=== PATIENT | male | born 1945 | race Caucasian/White ===

== ENCOUNTER → 2016-04-16 | Outpatient (CLI) | payer OTHER ==
[~2016-04-16] MED LIST: ACET-1175 PO; AMLO5TAB4 PO; ASPI81TA21 PO; BISA10SU38 PR; CLC100 PO; LORA-741 PO; LPR25 PO; MOML PO; POLY335040 PO; SENN-65 PO; ZCRT/40 PO
[2016-04-16 16:38] LABS: HEMATOCRIT 42.7 % (42-52); MEAN CELL VOLUME 103.6 fL (80-100); MEAN CORPUSCULAR HEMOGLOBIN 35.2 pg (25-34); MEAN PLATELET VOLUME 10.7 fL (7.4-10.4); PLATELET COUNT 225 K/uL (130-400); RED BLOOD COUNT 4.12 M/uL (4.7-6.1); WHITE BLOOD COUNT 6.66 K/uL (4.8-10.8)
[2016-04-16 17:56] LABS: AST/SGOT 15 U/L (15-37); BLOOD UREA NITROGEN 12 mg/dl (7-18); BUN/CREATININE RATIO 12.9 (10-20); CALCIUM 8.9 mg/dl (8.5-10.1); CARBON DIOXIDE 26 mmol/L (21-32); CHLORIDE 107 mmol/L (98-107); CREATININE 0.95 mg/dl (0.60-1.40); GLUCOSE 109 mg/dl (70-99); POTASSIUM 4.9 mmol/L (3.5-5.1); SODIUM 141 mmol/L (136-145)
[2016-04-16 18:04] LABS: ALKALINE PHOSPHATASE 84 U/L (45-117); ALT/SGPT 25 U/L (12-78); CHOLESTEROL 95 mg/dl (0-200); CHOLESTEROL/HDL RATIO 2.4; HDL CHOLESTEROL 39 mg/dl; LDL CHOLESTEROL CALCULATED 35 mg/dl; PROSTATE SPECIFIC ANTIGEN 0.623 ng/ml (0.000-4.000); TRIGLYCERIDES 105 mg/dl (0-150); VERY LOW DENSITY LIPOPROT CALC 21 mg/dl
[2016-04-17 06:40] LABS: ESTIMATED AVERAGE GLUCOSE 117 mg/dl; HA1C FLAG Normal (Normal)
== END | disposition home or self-care (01) ==
LOC: C.LABBFT 12:38
PROVIDERS: ATTEND Internal Medicine
DX: I25.10 Atherosclerotic heart disease of native coronary artery without angina pectoris (principal); R73.9 Hyperglycemia, unspecified; Z12.5 Encounter for screening for malignant neoplasm of prostate

== ENCOUNTER → 2016-10-24 | Outpatient (CLI) | payer OTHER ==
[2016-10-24 16:24] LABS: HEMATOCRIT 44.5 % (42-52); MEAN CELL VOLUME 105.5 fL (80-100); MEAN CORPUSCULAR HEMOGLOBIN 34.1 pg (25-34); MEAN CORPUSCULAR HGB CONC 32.4 g/dl (32-36); MEAN PLATELET VOLUME 10.4 fL (7.4-10.4); PLATELET COUNT 221 K/uL (130-400); RED BLOOD COUNT 4.22 M/uL (4.7-6.1); WHITE BLOOD COUNT 7.87 K/uL (4.8-10.8)
[2016-10-24 16:38] LABS: ALT/SGPT 23 U/L (12-78); AST/SGOT 14 U/L (15-37); BLOOD UREA NITROGEN 10 mg/dl (7-18); CARBON DIOXIDE 27 mmol/L (21-32); CHLORIDE 108 mmol/L (98-107); CREATININE 0.86 mg/dl (0.60-1.40); GLUCOSE 85 mg/dl (70-99); POTASSIUM 4.8 mmol/L (3.5-5.1); SODIUM 143 mmol/L (136-145)
[2016-10-24 16:42] LABS: ALKALINE PHOSPHATASE 73 U/L (45-117); CHOLESTEROL 95 mg/dl (0-200); CHOLESTEROL/HDL RATIO 2.3; HDL CHOLESTEROL 42 mg/dl; LDL CHOLESTEROL CALCULATED 22 mg/dl; TRIGLYCERIDES 154 mg/dl (0-150); VERY LOW DENSITY LIPOPROT CALC 31 mg/dl
[2016-10-25 07:23] LABS: ESTIMATED AVERAGE GLUCOSE 120 mg/dl; HA1C FLAG Normal (Normal)
== END | disposition home or self-care (01) ==
LOC: C.LABBFT 12:31
PROVIDERS: ATTEND Internal Medicine
DX: I63.9 Cerebral infarction, unspecified (principal); R73.01 Impaired fasting glucose; I10 Essential (primary) hypertension

== ENCOUNTER → 2017-06-10 | Outpatient (CLI) | payer OTHER ==
[2017-06-10 17:36] LABS: BASO % 0.4 %; BASO ABS # 0.03 K/uL (0-0.2); EOS % 1.2 %; HEMATOCRIT 45.9 % (42-52); HEMOGLOBIN 15.3 g/dL (14.0-18.0); IG# 0.01 K/uL (0.00-0.02); LYMPH % 34.3 %; LYMPH ABS # 2.88 K/uL (1.2-3.4); MEAN CORPUSCULAR HEMOGLOBIN 35.7 pg (25-34); MEAN CORPUSCULAR HGB CONC 33.3 g/dl (32-36); MEAN PLATELET VOLUME 10.5 fL (7.4-10.4); MONO % 8.2 %; MONO ABS # 0.69 K/uL (0.11-0.59); NEUT % 55.8 %; NEUT ABS # 4.69 K/uL (1.4-6.5); PLATELET COUNT 225 K/uL (130-400); RED CELL DISTRIBUTION WIDTH CV 13.4 % (11.5-14.5); RED CELL DISTRIBUTION WIDTH SD 52.7 fL (36.4-46.3)
[2017-06-10 17:54] LABS: ALT/SGPT 25 U/L (12-78); AST/SGOT 18 U/L (15-37); BLOOD UREA NITROGEN 14 mg/dl (7-18); CALCIUM 9.1 mg/dl (8.5-10.1); CARBON DIOXIDE 24 mmol/L (21-32); CREATININE 0.96 mg/dl (0.60-1.40); GLUCOSE 87 mg/dl (70-99); POTASSIUM 4.4 mmol/L (3.5-5.1); SODIUM 139 mmol/L (136-145)
[2017-06-10 17:59] LABS: ALKALINE PHOSPHATASE 85 U/L (45-117); CHOLESTEROL 97 mg/dl (0-200); LDL CHOLESTEROL CALCULATED 31 mg/dl; TOTAL PROTEIN 8.3 gm/dl (6.4-8.2)
[2017-06-11 06:45] LABS: HEMOGLOBIN A1C 5.7 % (4.5-5.6)
== END | disposition home or self-care (01) ==
LOC: C.LABBFT 11:18
PROVIDERS: ATTEND Internal Medicine
DX: R73.01 Impaired fasting glucose (principal); I63.9 Cerebral infarction, unspecified; Z12.5 Encounter for screening for malignant neoplasm of prostate

== ENCOUNTER 2021-12-29 14:11 | Inpatient (IN) ==
[2021-12-29 15:54] LABS: Basophils # (auto) 0.01 K/uL (0-0.2); Basophils % (auto) 0.3 %; Hematocrit (blood only) 41.3 % (40.1-51.0); Hemoglobin 14.3 g/dl (14.0-18.0); Immature Granulocytes # (auto) 0.01 K/uL (0.00-0.02); Immature Granulocytes % (auto) 0.3 %; Lymphocytes # (auto) 0.81 K/uL (1.2-3.4); Mean Corpuscular Hemoglobin 35.1 pg (25.0-34.0); Mean Corpuscular Hgb Conc 34.6 g/dL (32.0-36.0); Mean Corpuscular Volume 101.5 fL (80.0-100.0); Monocytes # (auto) 0.45 K/uL (0.24-0.82); Monocytes % (auto) 12.2 %; Neutrophils # (auto) 2.41 K/uL (1.4-6.5); Neutrophils % (auto) 65.2 %; Platelet Count 154 K/uL (130-400); RDW Coefficient of Variation 12.5 % (11.5-14.5); RDW Standard Deviation 47.5 fL (36.4-46.3); Red Blood Count 4.07 M/uL (4.63-6.08); White Blood Count 3.69 K/ul (4.8-10.8)
[2021-12-29 16:08] LABS: Partial Thromboplastin Ratio 1.4; Partial Thromboplastin Time 38.3 Seconds (21.0-31.0)
[2021-12-29 16:19] LABS: Alanine Aminotransferase 18 U/L (7-52); Albumin Globulin Ratio 1.3 (0.9-2); Albumin Level 3.9 gm/dl (3.4-5.0); Alkaline Phosphatase 88 U/L (34-104); Anion Gap 9 (3-11); Aspartate Aminotransferase 26 U/L (13-39); BUN Creatinine Ratio 13.5 (10-20); Bilirubin,Total 0.6 mg/dl (0.2-1.0); Blood Urea Nitrogen 12 mg/dl (6-23); Calcium 8.5 mg/dl (8.5-10.1); Carbon Dioxide 25 mmol/L (21-32); Chloride 100 mmol/L (98-107); Est GFR (African American) 96.9 ml/min; Est GFR (Non-African American) 83.6 ml/min; Globulin 3.1 gm/dl (2.5-4.0); Glucose 119 mg/dl (70-99(Fasting)); Potassium 4.2 mmol/L (3.5-5.1); Sodium 134 mmol/L (136-145)
[2021-12-29 16:32] LABS: Influenza A virus by PCR Negative (Neg); Influenza B virus by PCR Negative (Neg); RSV by PCR Negative (Neg)
[2021-12-29 17:00] LABS: SARS CoV2 RNA(COVID-19) InHosp POSITIVE (Negative)
[2021-12-29] MEDS ORDERED: methylPREDNISolone 125 MG/2 ML VIAL IV STA (20:02)
[2021-12-29] MEDS ORDERED: ALBUT/IPRATROP 3MG/0.5MG NEB 3 ML VIAL NEB STA (20:02)
--- NOTE | 2021-12-29 20:13 | Emergency Department Note ---
Impression & Plan COVID-19, Acute confusion ED Provider Note INFORMANT: Patient and family ED PROVIDER(S): Meng Burgos MD CHIEF COMPLAINT: Illness PLAN: Disposition: Admitted Condition: Good Outpatient prescription management: none Referral: None MEDICAL DECISION MAKING: Patient presented because of illness. He had confusion. He tested positive for COVID at home. Patient was confirmed positive here. He was doing well with supplemental nasal cannula oxygen. Chest x-ray was performed showed chronic changes without evidence of pneumonia. Minimal pulmonary edema. He was given nebulizer treatment as well as Solu-Medrol. Vital signs remained stable. Given the confusion head CT was performed and showed chronic changes. His ECG showed normal sinus rhythm. Chemistry panel was unremarkable. CBC showed a mild leukopenia. Further management in the hospital was deemed appropriate given his weakness, confusion, and COVID diagnosis. Consultation was made with Dr. Forrest Mendez of the [facility] service. Patient was evaluated in the ER for further management. Triage Nursing notes reviewed and agree them. Vital Signs: reviewed and remarkable for no significant abnormalities Differential diagnosis: COVID-19, reactive airway disease, pneumonia, pneumothorax, COPD, CHF, infections, cardiac ischemia, pulmonary embolism, CVA, as well as other pathologies. Diagnostics interpreted by me: ECG: Twelve-lead ECG reveals a normal sinus rhythm at 85 bpm. Right bundle branch block present. No ST elevation or depression. No PACs or PVCs. Cardiac Monitoring: Cardiac monitoring ordered by me: The patient was placed on continuous cardiac monitoring and observed. It revealed a normal sinus rhythm at 78 beats per minute without ectopy or evidence of dysrhythmia. Imaging studies: Chest x-ray as noted below HPI: The patient is a 76year old male who presents to the Emergency Room with complaints of illness. This started a week ago and the patient was found to have COVID-19. Family was concerned as he has become progressively more weak and short of breath. He has had periods of confusion. He is not doing well at home. EMS was summoned. Patient's BSG was adequate. He was noted to have a pulse oximetry of 91%. He was given nasal cannula oxygen. The patient also notes the following associated symptoms, diarrhea. The patient has taken no medication for relieving factors. Current pain is rated as 0/10. Pt denies LOC, headache, fevers, chills, diaphoresis, visual changes, neck pain, chest pain,nausea, vomiting, abdominal pain, back pain, melena, hematochezia, urinary symptoms, numbness, weakness, lymphadenopathy, rash, or other complaints. ROS: See above HPI for pertinent positives & negatives. A total of 10 systems reviewed and were otherwise negative. PAST MEDICAL HISTORY:See Below , hypertension, CAD PAST SURGICAL HISTORY:See Below, FAMILY HISTORY:See Below SOCIAL HISTORY:See Below, smoker HOME MEDICATIONS:See Below ALLERGIES:See Below VITALS:See Below PHYSICAL EXAMINATION: GENERAL: Awake, mildly ill-appearing, in no distress HENT: Normocephalic, atraumatic. Oropharynx unremarkable. EYES: Normal conjunctiva. Sclera non-icteric. NECK: Inspection normal. Non-tender. Supple. No nuchal rigidity. FROM. No masses. RESPIRATORY: Coarse breath sounds bilaterally. No wheezes. No rales. Mildly in creased respiratory effort. CARDIAC: Normal rate. Normal rhythm. No murmurs. No rubs. Extremities warm and well perfused. Pulses equal. No JVD. GI: Soft, non-distended. No tenderness to palpation. No rebound or guarding. No masses. RECTAL: Deferred. MUSCULOSKELETAL: Atraumatic. Chest examination reveals no tenderness. The back is symmetrical on inspection without obvious abnormality. There is no CVA tenderness to palpation. No joint edema. LOWER EXTREMITIES: Calves are equal size bilaterally and non-tender. No edema. No discoloration. NEURO: Mildly confused but otherwise normal sensorium. No focal sensory or motor deficits noted. SKIN: No rash or jaundice noted. Meng Burgos MD Past Med/Surg History Medical History Cerebral infarction Hypertension Surgical History History of cholecystectomy History of hernia repair History of tonsillectomy Family History Father Myocardial infarction Diabetes Sister Diabetes Brother Diabetes Family/Other Hypertension Mother Pacemaker Denies family history of Ovarian cancer Prostate cancer Breast cancer Colorectal cancer Social History (Updated 08/05/21 @ 11:24 by RANDI Egan) Smoking Status: Unknown if ever smoked Tobacco Type: Cigarettes Age Started Using Tobacco: 16; packs per day: 1; Second Hand Exposure: Yes ( smokes too ); Hx Alcohol Use: No Hx Substance Use: No Preferred Language: Khmer Visual Impairment: No Limitations Hearing Ability: Normal marital status: Current Living Situation: Spouse current occupational status: retired current occupation: used to work at [email or web address] Feels Safe at Home: Yes Childhood Exposure to Second-Hand Smoke: Yes Dental Care, Regularly: No Physical Activity Frequency: Does not Exercise Seatbelt Use: always Sunscreen Use: No Allergies Allergies Allergy/AdvReac Type Severity Reaction Status Date / Time No Known Allergies Allergy Verified 12/05/21 11:32 Home Meds Home Medications Medication Instructions Recorded Confirmed mecobalamin (vitamin B12) 1,000 2,500 mcg PO DAILY 12/05/21 12/05/21 mcg chewable tablet Previous Rx's Medication Instructions Recorded aspirin 81 mg tablet,delayed 81 mg PO DAILY #30 tabs 01/11/19 release metoprolol tartrate 25 mg tablet 25 mg PO BID #180 tabs 02/07/21 atorvastatin 20 mg tablet 20 mg PO DAILY #90 tabs 03/18/21 oxybutynin chloride 5 mg tablet 5 mg PO BID #180 tabs 06/24/21 amlodipine 5 mg tablet 5 mg PO DAILY #90 tabs 08/23/21 Results & Data (ED) Vital Signs Vital Signs - 24 hr 12/29/21 14:48 12/29/21 19:34 12/29/21 21:41 Temperature 36.6 C Temperature Source Temporal Artery Scan Pulse Rate 84 Pulse Rate [Right Finger] 87 Respiratory Rate 20 22 Pulse Oximetry 95 98 98 Oxygen Delivery Method Nasal Cannula Room Air Nasal Cannula Oxygen Flow Rate 2 4 Sepsis New/Unexplained Change in Mental Status Yes Sepsis Action Taken by Nursing No Action Required Laboratory Data Result diagrams: 12/29/21 15:35 12/29/21 15:35 Lab Results 12/29/21 12/29/21 12/29/21 Range/Units 15:35 15:35 15:35 WBC 3.69 L (4.8-10.8) K/ul RBC 4.07 L (4.63-6.08) M/uL Hgb 14.3 (14.0-18.0) g/dl Hct 41.3 (40.1-51.0) % MCV 101.5 H (80.0-100.0) fL MCH 35.1 H (25.0-34.0) pg MCHC 34.6 (32.0-36.0) g/dL RDW Std Deviation 47.5 H (36.4-46.3) fL RDW Coeff of [place] 12.5 (11.5-14.5) % Plt Count 154 (130-400) K/uL MPV 10.0 (9.4-12.4) fL Immature Gran % (Auto) 0.3 % Neut % (Auto) 65.2 % Lymph % (Auto) 22.0 % [place] % (Auto) 12.2 % Eos % (Auto) 0.0 % Baso % (Auto) 0.3 % Neut # (Auto) 2.41 (1.4-6.5) K/uL Lymph # (Auto) 0.81 L (1.2-3.4) K/uL [place] # (Auto) 0.45 (0.24-0.82) K/uL Eos # (Auto) 0.00 (0-0.50) K/uL Baso # (Auto) 0.01 (0-0.2) K/uL Immature Gran # (Auto) 0.01 (0.00-0.02) K/uL APTT 38.3 H (21.0-31.0) Seconds PTT Ratio 1.4 Sodium 134 L (136-145) mmol/L Potassium 4.2 (3.5-5.1) mmol/L Chloride 100 (98-107) mmol/L Carbon Dioxide 25 (21-32) mmol/L Anion Gap 9 (3-11) BUN 12 (6-23) mg/dl Creatinine 0.89 (0.6-1.4) mg/dl Est Cr Clr Drug Dosing Not Reportable Est GFR ( Amer) 96.9 ml/min Est GFR (Non-Af Amer) 83.6 ml/min BUN/Creatinine Ratio 13.5 (10-20) Glucose 119 H (70-99(Fasting)) mg/dl Calcium 8.5 (8.5-10.1) mg/dl Total Bilirubin 0.6 (0.2-1.0) mg/dl AST 26 (13-39) U/L ALT 18 (7-52) U/L Alkaline Phosphatase 88 (34-104) U/L Total Protein 7.0 (6.0-8.3) gm/dl Albumin 3.9 (3.4-5.0) gm/dl Globulin 3.1 (2.5-4.0) gm/dl Albumin/Globulin Ratio 1.3 (0.9-2) Urine Color Urine Appearance (Clear) Urine pH (4.5-7.5) Ur Specific [place] (1.000-1.030) Urine Protein (Negative) Urine Glucose (UA) (Negative) Urine Ketones (Negative) Urine Blood (Negative) Urine Nitrite (Negative) Urine Bilirubin (Negative) Urine Urobilinogen (Negative) Ur Leukocyte Esterase (Negative) Urine WBC (Auto) (0-5) /hpf Urine RBC (Auto) (0-4) /hpf U Hyaline Cast (Auto) (0-5) /lpf U Epithel Cells (Auto) (0-5) /lpf Urine Bacteria (Auto) (Negative) SARS-CoV-2 (PCR) (Negative) Influenza Type A (PCR) (Neg) Influenza Type B (PCR) (Neg) RSV (RT-PCR) (Neg) 12/29/21 12/29/21 Range/Units 15:40 22:32 WBC (4.8-10.8) K/ul RBC (4.63-6.08) M/uL Hgb (14.0-18.0) g/dl Hct (40.1-51.0) % MCV (80.0-100.0) fL MCH (25.0-34.0) pg MCHC (32.0-36.0) g/dL RDW Std Deviation (36.4-46.3) fL RDW Coeff of [place] (11.5-14.5) % Plt Count (130-400) K/uL MPV (9.4-12.4) fL Immature Gran % (Auto) % Neut % (Auto) % Lymph % (Auto) % [place] % (Auto) % Eos % (Auto) % Baso % (Auto) % Neut # (Auto) (1.4-6.5) K/uL Lymph # (Auto) (1.2-3.4) K/uL [place] # (Auto) (0.24-0.82) K/uL Eos # (Auto) (0-0.50) K/uL Baso # (Auto) (0-0.2) K/uL Immature Gran # (Auto) (0.00-0.02) K/uL APTT (21.0-31.0) Seconds PTT Ratio Sodium (136-145) mmol/L Potassium (3.5-5.1) mmol/L Chloride (98-107) mmol/L Carbon Dioxide (21-32) mmol/L Anion Gap (3-11) BUN (6-23) mg/dl Creatinine (0.6-1.4) mg/dl Est Cr Clr Drug Dosing Est GFR ( Amer) ml/min Est GFR (Non-Af Amer) ml/min BUN/Creatinine Ratio (10-20) Glucose (70-99(Fasting)) mg/dl Calcium (8.5-10.1) mg/dl Total Bilirubin (0.2-1.0) mg/dl AST (13-39) U/L ALT (7-52) U/L Alkaline Phosphatase (34-104) U/L Total Protein (6.0-8.3) gm/dl Albumin (3.4-5.0) gm/dl Globulin (2.5-4.0) gm/dl Albumin/Globulin Ratio (0.9-2) Urine Color Dark Yellow Urine Appearance Clear (Clear) Urine pH 5.5 (4.5-7.5) Ur Specific [place] 1.020 (1.000-1.030) Urine Protein Trace H (Negative) Urine Glucose (UA) Negative (Negative) Urine Ketones 1+ H (Negative) Urine Blood Negative (Negative) Urine Nitrite Negative (Negative) Urine Bilirubin 1+ H (Negative) Urine Urobilinogen Negative (Negative) Ur Leukocyte Esterase Trace H (Negative) Urine WBC (Auto) 1-5 (0-5) /hpf Urine RBC (Auto) 5-10 H (0-4) /hpf U Hyaline Cast (Auto) 5-10 H (0-5) /lpf U Epithel Cells (Auto) >30 H (0-5) /lpf Urine Bacteria (Auto) Negative (Negative) SARS-CoV-2 (PCR) POSITIVE A* (Negative) Influenza Type A (PCR) Negative (Neg) Influenza Type B (PCR) Negative (Neg) RSV (RT-PCR) Negative (Neg) Administered Medications Discontinued Medications Albuterol (Albut/Ipratrop 3mg/0.5mg Neb 3 Ml Vial) 3 ml NEB NOW STA; Protocol Stop: 12/29/21 20:03 Last Admin: 12/29/21 20:09 Dose: 3 ml Documented By: PINO Methylprednisolone (Methylprednisolone 125 Mg/2 Ml Vial) 125 mg IV NOW STA Stop: 12/29/21 20:03 Last Admin: 12/29/21 20:09 Dose: 125 mg Documented By: PINO Imaging Data Radiologist's Impression: Chest X-Ray 12/29/21 18:47 XR chest 1V portable CLINICAL HISTORY: +covid TECHNIQUE: Single frontal radiograph of the chest was obtained. Comparison: Comparison is made to chest radiograph 09/09/2011 FINDINGS: No lines and tubes are seen. Cardiomegaly is noted. Prominence and cephalization of the vasculature is seen. No evidence of pleural effusion or pneumothorax. IMPRESSION: Mild pulmonary edema. No radiographic evidence of pneumonia. ACT 112: Negative or not required by law. Electronically signed by: Cody Knapp M.D. 12/29/2021 8:51 PM Discharge Plan Visit Data Chief Complaint: Illness Stated Complaint: + COVID ED Provider: Meng Burgos Discharge Problem: COVID-19, Acute confusion Patient Disposition: Admitted As Inpatient Discharge Instructions Interventions: ED Discharge Assessment Last Done: 12/30/21 00:16
--- NOTE | 2021-12-29 20:54 | XRay Report ---
XR chest 1V portable CLINICAL HISTORY: +covid TECHNIQUE: Single frontal radiograph of the chest was obtained. Comparison: Comparison is made to chest radiograph 09/09/2011 FINDINGS: No lines and tubes are seen. Cardiomegaly is noted. Prominence and cephalization of the vasculature i s seen. No evidence of pleural effusion or pneumothorax. IMPRESSION: Mild pulmonary edema. No radiographic evidence of pneumonia. ACT 112: Negative or not required by law. Electronically signed by: Cody Knapp M.D. 12/29/2021 8:51 PM
[2021-12-29 22:49] LABS: Appearance Urine Clear (Clear); Bacteria Urine Automated Negative (Negative); Blood Urine Negative (Negative); Color Urine Dark Yellow; Epithelial Cell Urine Auto >30 /lpf (0-5); Glucose Urine UA Negative (Negative); Ketones Urine 1+ (Negative); Leukocyte Esterase Urine Trace (Negative); Nitrite Urine Negative (Negative); Protein Urine Trace (Negative); Urobilinogen Urine Negative (Negative); pH Urine 5.5 (4.5-7.5)
[2021-12-29 22:56] LABS: Bilirubin Urine 1+ (Negative)
--- NOTE | 2021-12-29 23:01 | History & Physical Report ---
Date of Service December 29, 2021 Assessment & Plan (1) Acute respiratory failure with hypoxia: Plan: Acute respiratory failure with hypoxia/COVID-19 infection/COPD exacerbation- Received methylprednisolone 125 mg IV from the ED and a DuoNeb treatment Methylprednisolone 40 mg IV every 8 hours Duonebs every 4 hours while awake and every 2 hours when necessary. Guaifenesin extended release 12 mg p.o. twice daily vitamin D 125 mcg p.o. daily Zinc sulfate to 20 mg p.o. daily Tobacco cessation counseling (2) COPD exacerbation: Plan: See above No record of using inhalers at home, would likely benefit from having tobacco cessation counseling as noted, and routine and/or as needed inhalers for home use (3) COVID-19: Plan: See above (4) Acute confusion: (5) Smokes 1 pack of cigarettes per day: Plan: Tobacco cessation counseling (6) Hypertension: Plan: Hypertension/ischemic cardiomyopathy Continue metoprolol tartrate, aspirin and amlodipine with hold parameters (7) Ischemic cardiomyopathy: Plan: See above (8) Anxiety: Plan: Patient appears mildly anxious and was hesitant to stay in hospital. Would not treat with medications (9) Vitamin B12 deficiency: Plan: Continue B12 supplementation 2500 mcg p.o. daily chewable supplement (10) Bladder spasms: Plan: Continue oxybutynin acquired 5 mg p.o. twice daily History of Present Illness Chief Complaint: The patient was referred to the emergency department by family, due to generalized fatigue, confusion and concerns due to family exposure to other members with COVID-19, and patient did test positive at home, and in ED this evening Primary Care Provider: Chadwick Pinzon MD The patient is a 76-year-old male with a past medical history including right bundle branch block, peripheral neuropathy, morbid obesity, ischemic cardiomyopathy, impaired fasting glucose, hypertension, CAD, cerebral infarction 08/2011, carotid artery stenosis, anxiety, and vit B12 deficiency. Suspect patient has some underlying dementia as well, as suggested by memory and recall with practitioner and family while in the ED. While in the ED, the patient did receive a nebulizer treatment and was given Solu-Medrol 125 mg IV. Patient continues to smoke on a daily basis, but has not been diagnosed with emphysema in the past. He does report a intermittently productive cough over the past week. The patient's preference was to go home this evening, but his and I were able to convince him to please stay in the hospital for 36 hours to get treatment. Allergies Allergy/AdvReac Type Severity Reaction Status Date / Time No Known Allergies Allergy Verified 12/05/21 11:32 Home Medications Medication Instructions Recorded Confirmed Type aspirin 81 mg tablet,delayed 81 mg PO DAILY #30 tabs 01/11/19 12/05/21 Rx release metoprolol tartrate 25 mg tablet 25 mg PO BID #180 tabs 02/07/21 12/05/21 Rx atorvastatin 20 mg tablet 20 mg PO DAILY #90 tabs 03/18/21 12/05/21 Rx oxybutynin chloride 5 mg tablet 5 mg PO BID #180 tabs 06/24/21 12/05/21 Rx amlodipine 5 mg tablet 5 mg PO DAILY #90 tabs 08/23/21 12/05/21 Rx mecobalamin (vitamin B12) 1,000 2,500 mcg PO DAILY 12/05/21 12/05/21 History mcg chewable tablet Past Med/Surg History Medical History (Updated 12/30/21 @ 03:59 by Forrest Mendez MD) Bladder spasms Cerebral infarction Hypertension Surgical History History of cholecystectomy History of hernia repair History of tonsillectomy Family History Father Myocardial infarction Diabetes Sister Diabetes Brother Diabetes Family/Other Hypertension Mother Pacemaker Denies family history of Ovarian cancer Prostate cancer Breast cancer Colorectal cancer Social History (Updated 08/05/21 @ 11:24 by ARNDI Egan) Smoking Status: Unknown if ever smoked Tobacco Type: Cigarettes Age Started Using Tobacco: 16; packs per day: 1; Preferred Language: Pashto Communication Ability: Impaired Visual Impairment: No Limitations Hearing Ability: Normal Entrance Guard Required: No marital status: Current Living Situation: Spouse Current Living Situation Comment: Pt. unable to provide infromation current occupational status: retired current occupation: used to work at [employer] Feels Safe at Home: Yes Childhood Exposure to Second-Hand Smoke: Yes Dental Care, Regularly: No Physical Activity Frequency: Does not Exercise Seatbelt Use: always Sunscreen Use: No Assistive Devices: Glasses Assistive Devices Comment: Pt. unable to provide infromation Review of Systems Review of Systems: The patient denies chest pain, palpitations, lower extremity swelling, sore throat, fevers, chills, sweats, nausea, vomiting, diarrhea , constipation, abdominal pain, pelvic pain, blood in urine or stool, dysuria, urinary frequency or urgency, lightheadedness, dizziness, headache, loss of consciousness, rash, abnormal bruising or bleeding, imbalance, focal weakness, numbness or tingling in arms or legs, generalized arthralgias or myalgias, back or neck pain, or night sweats. The review of systems is otherwise negative other than for that already noted above, and at least 10 systems have been reviewed. Physical Exam Physical Exam: The patient is awake, alert and oriented 3, well developed and well nourished, normocephalic and atraumatic, lying in bed and in no acute di stress. HEENT--PERRL, EOMI, mucous membranes and oropharynx dry. Neck--supple. No JVD. No bruits. Thyroid normal, trachea midline, no adenopathy. Heart--normal S1 and S2. No murmurs, rubs or gallops. Lungs--coarse breath sounds with wheezes throughout bilaterally. No respiratory distress, no accessory muscle use. Abdomen--normal bowel sounds and soft. Nontender. Nondistended, no hernias or masses, no organomegaly. Mildly obese Extremities--no cyanosis or clubbing. No edema. Dermatologic--normal skin turgor, normal color, no abnormal lymph nodes, no rash. Neurologic--cranial nerves II through XII grossly intact. Rheumatologic--normal range of motion. Psychiatric--normal affect. Results & Data Results & Data ([facility]) Vital Signs (Past 12 Hours) Vital Signs Temp Pulse Pulse Resp Pulse Ox O2 Del Method O2 Flow Rate 12/29/21 21:41 98 Nasal Cannula 4 12/29/21 19:34 87 22 98 Room Air 12/29/21 14:48 36.6 C 84 20 95 Nasal Cannula 2 Laboratory Results Laboratory Results WBC 3.69 K/ul (4.8-10.8) L 12/29/21 15:35 RBC 4.07 M/uL (4.63-6.08) L 12/29/21 15:35 Hgb 14.3 g/dl (14.0-18.0) 12/29/21 15:35 Hct 41.3 % (40.1-51.0) 12/29/21 15:35 MCV 101.5 fL (80.0-100.0) H 12/29/21 15:35 MCH 35.1 pg (25.0-34.0) H 12/29/21 15:35 MCHC 34.6 g/dL (32.0-36.0) 12/29/21 15:35 RDW Std Deviation 47.5 fL (36.4-46.3) H 12/29/21 15:35 RDW Coeff of [place] 12.5 % (11.5-14.5) 12/29/21 15:35 Plt Count 154 K/uL (130-400) 12/29/21 15:35 MPV 10.0 fL (9.4-12.4) 12/29/21 15:35 Immature Gran % (Auto) 0.3 % 12/29/21 15:35 Neut % (Auto) 65.2 % 12/29/21 15:35 Lymph % (Auto) 22.0 % 12/29/21 15:35 [place] % (Auto) 12.2 % 12/29/21 15:35 Eos % (Auto) 0.0 % 12/29/21 15:35 Baso % (Auto) 0.3 % 12/29/21 15:35 Neut # (Auto) 2.41 K/uL (1.4-6.5) 12/29/21 15:35 Lymph # (Auto) 0.81 K/uL (1.2-3.4) L 12/29/21 15:35 [place] # (Auto) 0.45 K/uL (0.24-0.82) 12/29/21 15:35 Eos # (Auto) 0.00 K/uL (0-0.50) 12/29/21 15:35 Baso # (Auto) 0.01 K/uL (0-0.2) 12/29/21 15:35 Immature Gran # (Auto) 0.01 K/uL (0.00-0.02) 12/29/21 15:35 APTT 38.3 Seconds (21.0-31.0) H 12/29/21 15:35 PTT Ratio 1.4 12/29/21 15:35 Sodium 134 mmol/L (136-145) L 12/29/21 15:35 Potassium 4.2 mmol/L (3.5-5.1) 12/29/21 15:35 Chloride 100 mmol/L (98-107) 12/29/21 15:35 Carbon Dioxide 25 mmol/L (21-32) 12/29/21 15:35 Anion Gap 9 (3-11) 12/29/21 15:35 BUN 12 mg/dl (6-23) 12/29/21 15:35 Creatinine 0.89 mg/dl (0.6-1.4) 12/29/21 15:35 Est Cr Clr Drug Dosing Not Reportable 12/29/21 15:35 Est GFR ( Amer) 96.9 ml/min 12/29/21 15:35 Est GFR (Non-Af Amer) 83.6 ml/min 12/29/21 15:35 BUN/Creatinine Ratio 13.5 (10-20) 12/29/21 15:35 Glucose 119 mg/dl (70-99(Fasting)) H 12/29/21 15:35 Calcium 8.5 mg/dl (8.5-10.1) 12/29/21 15:35 Total Bilirubin 0.6 mg/dl (0.2-1.0) 12/29/21 15:35 AST 26 U/L (13-39) 12/29/21 15:35 ALT 18 U/L (7-52) 12/29/21 15:35 Alkaline Phosphatase 88 U/L (34-104) 12/29/21 15:35 Total Protein 7.0 gm/dl (6.0-8.3) 12/29/21 15:35 Albumin 3.9 gm/dl (3.4-5.0) 12/29/21 15:35 Globulin 3.1 gm/dl (2.5-4.0) 12/29/21 15:35 Albumin/Globulin Ratio 1.3 (0.9-2) 12/29/21 15:35 Urine Color Dark Yellow 12/29/21 22:32 Urine Appearance Clear (Clear) 12/29/21 22:32 Urine pH 5.5 (4.5-7.5) 12/29/21 22:32 Ur Specific [place] 1.020 (1.000-1.030) 12/29/21 22:32 Urine Protein Trace (Negative) H 12/29/21 22:32 Urine Glucose (UA) Negative (Negative) 12/29/21 22:32 Urine Ketones 1+ (Negative) H 12/29/21 22:32 Urine Blood Negative (Negative) 12/29/21 22:32 Urine Nitrite Negative (Negative) 12/29/21 22:32 Urine Bilirubin 1+ (Negative) H 12/29/21 22:32 Urine Urobilinogen Negative (Negative) 12/29/21 22:32 Ur Leukocyte Esterase Trace (Negative) H 12/29/21 22:32 Urine WBC (Auto) 1-5 /hpf (0-5) 12/29/21 22:32 Urine RBC (Auto) 5-10 /hpf (0-4) H 12/29/21 22:32 U Hyaline Cast (Auto) 5-10 /lpf (0-5) H 12/29/21 22:32 U Epithel Cells (Auto) >30 /lpf (0-5) H 12/29/21 22:32 Urine Bacteria (Auto) Negative (Negative) 12/29/21 22:32 SARS-CoV-2 (PCR) POSITIVE (Negative) A* 12/29/21 15:40 Influenza Type A (PCR) Negative (Neg) 12/29/21 15:40 Influenza Type B (PCR) Negative (Neg) 12/29/21 15:40 RSV (RT-PCR) Negative (Neg) 12/29/21 15:40 Impressions Chest X-Ray 12/29/21 18:47 XR chest 1V portable CLINICAL HISTORY: +covid TECHNIQUE: Single frontal radiograph of the chest was obtained. Comparison: Comparison is made to chest radiograph 09/09/2011 FINDINGS: No lines and tubes are seen. Cardiomegaly is noted. Prominence and cephalization of the vasculature is seen. No evidence of pleural effusion or pneumothorax. IMPRESSION: Mild pulmonary edema. No radiographic evidence of pneumonia. ACT 112: Negative or not required by law. Electronically signed by: Cody Knapp M.D. 12/29/2021 8:51 PM Code Status & VTE Plan Code Status Full code VTE Prophylaxis Plan VTE Prophylaxis will be ordered: Yes PG Care Time/CCT Total # of Minutes Spent Total Time Spent with Patient: Total time spent is greater than 50% in coordination of care (as documented) at patient's floor/unit and/or counseling patient: Coding Level of Care Code 64251 Initial Inpt Care Lvl 3 Diagnoses Acute respiratory failure with hypoxia J96.01 COPD exacerbation J44.1 COVID-19 U07.1 Acute confusion R41.0 Smokes 1 pack of cigarettes per day F17.210 Hypertension I10 Ischemic cardiomyopathy I25.5 Anxiety F41.9 Vitamin B12 deficiency E53.8 Bladder spasms N32.89
[2021-12-30] MEDS ORDERED: ONDANSETRON INJ 2 MG/ML 2 ML VIAL IV PRN (00:48)
[2021-12-30] MEDS ORDERED: ACETAMINOPHEN 325 MG TAB PO PRN (00:48)
[2021-12-30] MEDS ORDERED: ENOXAPARIN INJ 30 MG/0.3 ML SYR SQ SCH ×2 (00:48→09:00)
[2021-12-30] MEDS ORDERED: MICONAZOLE NITRATE POWDER 43 GM EXT PRN (00:55)
[2021-12-30] MEDS ORDERED: Patient's HEIGHT &/or WEIGHT Needed SCH (01:00)
[2021-12-30] MEDS: METOPROLOL TARTRATE 25 MG TAB PO SCH ×3 (01:51→20:26)
[2021-12-30] MEDS: ALBUTEROL HFA 8 GM INHALER INH SCH ×4 (07:14→19:13)
--- NOTE | 2021-12-30 07:15 | CT Scan Report ---
HEAD CT NONCONTRAST CT DOSE: 614.27 mGy.cm HISTORY: confusion, +covid TECHNIQUE: Multiaxial CT images of the head were performed without the use of intravenous contrast. A utomated exposure control was utilized for this study. A dose lowering technique was utilized adheri ng to the principles of ALARA. Comparison: Brain MRI 09/10/2011. Findings: Mild mucosal thickening within the ethmoid air cells and left maxillary sinus. Trace fluid level within the right maxillary sinus. The mastoid air cells are clear. Large area of encephalomalac ia involving the left cerebral hemisphere and left basal ganglia consistent with an old left MCA terr itory infarct. Mild atrophic changes seen within the brain. There is no mass, hematoma, midline shift , acute infarct identified. The calvarium and skull base are intact. Impression: 1. No acute infarct or intracranial hemorrhage. 2. Old left MCA territory infarct. ACT 112: Negative or not required by law. Electronically signed by: Bienvenido Erazo M.D. 12/30/2021 7:14 AM
[2021-12-30] MEDS ORDERED: REMDESIVIR 200 MG in SODIUM CHLORIDE 0.9% 210 ML IV STA (07:35)
[2021-12-30] MEDS: ENOXAPARIN INJ 40 MG/0.4 ML SYR SQ SCH ×2 (08:33→20:23)
[2021-12-30] MEDS: dexAMETHasone 6 MG in SYRINGE 0 ML IV SCH (08:34)
[2021-12-30] MEDS: ATORVASTATIN 20 MG TAB PO SCH (08:34)
[2021-12-30] MEDS: CYANOCOBALAMIN (B-12) 2,500 MCG TABLET SL SCH (08:35)
[2021-12-30] MEDS: guaiFENesin 600 MG TABCR PO SCH ×2 (08:35→20:25)
[2021-12-30] MEDS: CHOLECALCIFEROL 5,000 UNITS 125 MCG TAB PO SCH (08:35)
[2021-12-30] MEDS: amLODIPine BESYLATE 5 MG TAB PO SCH (08:35)
[2021-12-30] MEDS: ASPIRIN 81 MG ECTAB PO SCH (08:35)
[2021-12-30] MEDS: ZINC SULFATE 220 MG CAPSULE PO SCH (08:36)
[2021-12-30] MEDS: NICOTINE 21 MG/24 HR TDSY TD SCH (08:36)
[2021-12-30 09:20] LABS: Hematocrit (blood only) 39.2 % (40.1-51.0); Hemoglobin 13.3 g/dl (14.0-18.0); Immature Granulocytes # (auto) 0.01 K/uL (0.00-0.02); Immature Granulocytes % (auto) 0.4 %; Lymphocytes % (auto) 17.7 %; Mean Corpuscular Hemoglobin 34.4 pg (25.0-34.0); Mean Corpuscular Hgb Conc 33.9 g/dL (32.0-36.0); Mean Corpuscular Volume 101.3 fL (80.0-100.0); Mean Platelet Volume 10.1 fL (9.4-12.4); Monocytes # (auto) 0.11 K/uL (0.24-0.82); Monocytes % (auto) 3.9 %; Platelet Count 158 K/uL (130-400); RDW Coefficient of Variation 12.6 % (11.5-14.5); RDW Standard Deviation 46.9 fL (36.4-46.3); Red Blood Count 3.87 M/uL (4.63-6.08); White Blood Count 2.82 K/ul (4.8-10.8)
[2021-12-30 09:21] LABS: Partial Thromboplastin Ratio 1.4; Partial Thromboplastin Time 39.4 Seconds (21.0-31.0)
[2021-12-30 09:23] LABS: Albumin Globulin Ratio 1.3 (0.9-2); Albumin Level 3.6 gm/dl (3.4-5.0); BUN Creatinine Ratio 18.7 (10-20); Bilirubin,Total 0.5 mg/dl (0.2-1.0); Calcium 8.4 mg/dl (8.5-10.1); Creatinine Clr Calc Pharmacy 98.9 ml/min; Est GFR (Non-African American) 89.7 ml/min; Globulin 2.8 gm/dl (2.5-4.0); Magnesium 2.1 mg/dl (1.7-2.4); Total Protein 6.4 gm/dl (6.0-8.3)
--- NOTE | 2021-12-30 13:00 | Electrocardiogram Report ---
Test Reason : Blood Pressure : / mmHG Vent. Rate : 085 BPM Atrial Rate : 085 BPM P-R Int : 124 ms QRS Dur : 134 ms QT Int : 452 ms P-R-T Axes : 083 100 046 degrees QTc Int : 537 ms Poor data quality, interpretation may be adversely affected Normal sinus rhythm Right bundle branch block Abnormal ECG When compared with ECG of 13-SEP-2011 16:45, Premature ventricular complexes are no longer Present Premature atrial complexes are no longer Present Confirmed by Thony Andino ([id number]) on 12/30/2021 12:59:46 PM Referred By: Confirmed By:Thony Andino
[2021-12-30] MEDS: NYSTATIN CR 15 GM TUBE EXT SCH ×2 (13:29→20:28)
[2021-12-30] MEDS: cephALEXin 500 MG CAP PO SCH ×2 (16:35→20:22)
--- NOTE | 2021-12-30 19:03 | Hospitalist Progress Note ---
Date of Service December 30, 2021 Assessment & Plan (1) Acute respiratory failure with hypoxia: Plan: 2nd to COVID-19 infection with resulting acute bronchitis. Suspect he has underlying COPD but no formal dx and is not on inhalers at home. Thus, COPD exacerbation would more accurately describe current illness. Either way - cont bronchodilators, cont steroids, cont supportive care. NC O2 to keep sats 90-92%. (2) COPD exacerbation: Plan: Again no formal dx of COPD but suspect he has such given his long-standing tobacco usage, fingernail clubbing, etc. Cont IV dexamethasone, scheduled bronchodilators, mucinex. Add flutter valve. Add incentive spirometry. NC O2 to keep sats 90-92%, if needed. (3) COVID-19: Plan: Tested + at home just prior to presentation, and is + at [facility]. Given current O2 sats of 89-92% start Remdesivir for up to 5 days. Cont IV dexamethasone 6mg daily. No evidence of concomitant bacterial superinfection of lungs. Cont airborne isolation. DVT proph - lovenox BID. (4) Acute confusion: Plan: Acute metabolic encephalopathy 2nd to COVID-19 infection. Supportive care; avoid sedatives. (5) Smokes 1 pack of cigarettes per day: Plan: Tobacco cessation counseling should be provided. In meantime - nicoderm patch 21mg/day. (6) Hypertension: Plan: Continue metoprolol tartrate 25mg BID. Continue daily aspirin. Continue amlodipine 5mg daily. BPs acceptable at this time. (7) Ischemic cardiomyopathy: Plan: Only echo I could find in our EMR is from 2011 - EF 35-40% with wall motion abnormalities c/w ischemic cardiomyopathy. Consider updating his echo while here. He remains clinically compensated at this time fortunately. Cont metoprolol BID. He does not take diuretics at home. (8) Vitamin B12 deficiency: Plan: Continue B12 supplementation (9) Bladder spasms: Plan: Continue oxybutynin (10) Impaired fasting glucose: Plan: a1c 5.8% in July 2021. repeat an a1c in am. glucose was elevated on blood work this am. change diet to T2DM/heart healthy. (11) Cerebral infarction, unspecified: Plan: 2011 - large L MCA territory stroke. resulting expressive aphasia and mild right-sided weakness since then. cont asa for secondary prevention. cont statin. (12) Carotid artery stenosis: Plan: h/o left-sided ICA stenosis s/p CEA (2011?) (13) DVT prophylaxis: Plan: lovenox 40mg BID higher amount of lovenox due to high-risk for VTE in setting of poor mobility and COVID infection (14) Jossy rash of groin: Plan: severe I cannot rule out superimposed bacterial cellulitis MRSA swab from nares negative jossy - nystatin cream TID (would consider fluconazole but will defer in setting of Remdesivir usage and potential for liver toxicity) ?superimposed bacterial infection - keflex 500mg TID Plan will need PT, OT will update family later today Admission and Anticipated Discharge Date Admission Date: December 29, 2021 Subjective due to dense expressive aphasia communication was difficult but he did give 1- word answers and was often gesturing to communicate his needs he endorsed cough and congestion but denied dyspnea at rest did admit to fatigue and poor appetite as well denied chest pain denied abd pain tele overnight wnl o2 sats low 90s, sometimes 89% -- all in room air during the visit he was coughing Review of Systems Review of Systems: gen - fatigue, lack of appetite cv - no cp, no orthopnea pulm - cough, congestion, wheezing abd - no pain, no nausea, no vomiting Physical Exam Physical Exam: gen - chronically ill appearing, expressive aphasia, coughing, NAD neck - no JVD mouth - MMM heart - tones distant but RRR, s1 s2, no obvious murmur lungs - diffuse wheezing all lung segments; no rales; no increased work of breathing; airation fair abd - soft NT ND BS+; no HSM skin - SEVERE candidal rash in groin, pubic region, lower abdominal wall/skin folds; satellite lesions over proximal thighs; I cannot exclude element of superimposed cellulitis as 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 with nicotine staining of nails ext - no edema, pulses 2+ b/l neuro - right facial droop; expressive aphasia; mild right-sided weakness mainly the right arm Results & Data Results & Data ([facility]) Vital Signs (Past 12 Hours) Vital Signs Temp Pulse Pulse Resp BP Pulse Ox O2 Del Method 12/30/21 15:27 36.6 C 80 20 113/68 90 Room Air 12/30/21 14:59 75 12/30/21 15:02 86 18 94 Room Air 12/30/21 11:40 36.6 C 72 16 112/66 92 Room Air 12/30/21 10:48 83 18 90 Room Air 12/30/21 07:16 90 18 90 Room Air Laboratory Results Laboratory Results - last 24 hr 12/30/21 12/30/21 12/30/21 08:40 08:40 08:40 WBC 2.82 L RBC 3.87 L Hgb 13.3 L Hct 39.2 L MCV 101.3 H MCH 34.4 H MCHC 33.9 RDW Std Deviation 46.9 H RDW Coeff of [place] 12.6 Plt Count 158 MPV 10.1 Immature Gran % (Auto) 0.4 Neut % (Auto) 78.0 Lymph % (Auto) 17.7 Bay % (Auto) 3.9 Eos % (Auto) 0.0 Baso % (Auto) 0.0 Neut # (Auto) 2.20 Lymph # (Auto) 0.50 L Bay # (Auto) 0.11 L Eos # (Auto) 0.00 Baso # (Auto) 0.00 Immature Gran # (Auto) 0.01 APTT 39.4 H PTT Ratio 1.4 Sodium 135 L Potassium 4.0 Chloride 102 Carbon Dioxide 24 Anion Gap 9 BUN 14 Creatinine 0.75 Est Cr Clr Drug Dosing 98.9 Est GFR ( Amer) 104.0 Est GFR (Non-Af Amer) 89.7 BUN/Creatinine Ratio 18.7 Glucose 151 H Calcium 8.4 L Magnesium 2.1 Total Bilirubin 0.5 AST 21 ALT 16 Alkaline Phosphatase 80 Total Protein 6.4 Albumin 3.6 Globulin 2.8 Albumin/Globulin Ratio 1.3 Nasal Screen MRSA (PCR) 12/30/21 12:30 WBC RBC Hgb Hct MCV MCH MCHC RDW Std Deviation RDW Coeff of [place] Plt Count MPV Immature Gran % (Auto) Neut % (Auto) Lymph % (Auto) Bay % (Auto) Eos % (Auto) Baso % (Auto) Neut # (Auto) Lymph # (Auto) Bay # (Auto) Eos # (Auto) Baso # (Auto) Immature Gran # (Auto) APTT PTT Ratio Sodium Potassium Chloride Carbon Dioxide Anion Gap BUN Creatinine Est Cr Clr Drug Dosing Est GFR ( Amer) Est GFR (Non-Af Amer) BUN/Creatinine Ratio Glucose Calcium Magnesium Total Bilirubin AST ALT Alkaline Phosphatase Total Protein Albumin Globulin Albumin/Globulin Ratio Nasal Screen MRSA (PCR) Negative Diagnostic Findings Chest X-Ray 12/29/21 18:47 XR chest 1V portable CLINICAL HISTORY: +covid TECHNIQUE: Single frontal radiograph of the chest was obtained. Comparison: Comparison is made to chest radiograph 09/09/2011 FINDINGS: No lines and tubes are seen. Cardiomegaly is noted. Prominence and cephalization of the vasculature is seen. No evidence of pleural effusion or pneumothorax. IMPRESSION: Mild pulmonary edema. No radiographic evidence of pneumonia. ACT 112: Negative or not required by law. Electronically signed by: Cody Knapp M.D. 12/29/2021 8:[address] 12/29/21 19:[address] DOSE: 614.27 mGy.cm HISTORY: confusion, +covid TECHNIQUE: Multiaxial CT images of the head were performed without the use of intravenous contrast. Automated exposure control was utilized for this study. A dose lowering technique was utilized adhering to the principles of ALARA. Comparison: Brain MRI 09/10/2011. Findings: Mild mucosal thickening within the ethmoid air cells and left maxillary sinus. Trace fluid level within the right maxillary sinus. The mastoid air cells are clear. Large area of encephalomalacia involving the left cerebral hemisphere and left basal ganglia consistent with an old left MCA territory in farct. Mild atrophic changes seen within the brain. There is no mass, hematoma, midline shift, acute infarct identified. The calvarium and skull base are intact. Impression: 1. No acute infarct or intracranial hemorrhage. 2. Old left MCA territory infarct. ACT 112: Negative or not required by law. Electronically signed by: Bienvenido Erazo M.D. 12/30/2021 7:14 AM PG Care Time/CCT Total # of Minutes Spent Total Time Spent with Patient: Total time spent is greater than 50% in coordination of care (as documented) at patient's floor/unit and/or counseling patient: Coding Level of Care Code 81645 Subseq Hosp Care Lvl 3 Diagnoses Acute respiratory failure with hypoxia J96.01 COPD exacerbation J44.1 COVID-19 U07.1 Acute confusion R41.0 Smokes 1 pack of cigarettes per day F17.210 Hypertension I10 Ischemic cardiomyopathy I25.5 Vitamin B12 deficiency E53.8 Bladder spasms N32.89 Impaired fasting glucose R73.01 Cerebral infarction, unspecified I63.9 Carotid artery stenosis I65.29 DVT prophylaxis Z29.9 Jossy rash of groin B37.89
[2021-12-31 07:18] LABS: Basophils # (auto) 0.01 K/uL (0-0.2); Basophils % (auto) 0.1 %; Hematocrit (blood only) 40.2 % (40.1-51.0); Immature Granulocytes # (auto) 0.06 K/uL (0.00-0.02); Immature Granulocytes % (auto) 0.5 %; Lymphocytes % (auto) 12.7 %; Mean Corpuscular Hemoglobin 34.6 pg (25.0-34.0); Mean Corpuscular Hgb Conc 34.8 g/dL (32.0-36.0); Mean Corpuscular Volume 99.3 fL (80.0-100.0); Mean Platelet Volume 10.5 fL (9.4-12.4); Monocytes # (auto) 0.92 K/uL (0.24-0.82); Monocytes % (auto) 8.3 %; Neutrophils # (auto) 8.67 K/uL (1.4-6.5); Neutrophils % (auto) 78.4 %; Platelet Count 227 K/uL (130-400); RDW Coefficient of Variation 12.6 % (11.5-14.5); RDW Standard Deviation 46.4 fL (36.4-46.3); Red Blood Count 4.05 M/uL (4.63-6.08); White Blood Count 11.06 K/ul (4.8-10.8)
[2021-12-31] MEDS: ALBUTEROL HFA 8 GM INHALER INH SCH ×4 (07:33→19:21)
[2021-12-31 07:34] LABS: Estimated Average Glucose 126 mg/dl; Partial Thromboplastin Ratio 1.4; Partial Thromboplastin Time 37.9 Seconds (21.0-31.0)
--- NOTE | 2021-12-31 07:35 | Hospitalist Progress Note ---
Date of Service December 31, 2021 Assessment & Plan (1) Acute respiratory failure with hypoxia: Plan: 2nd to COVID-19 infection with resulting acute bronchitis. Suspect he has underlying COPD but no formal dx and is not on inhalers at home. thus, COPD exacerbation would more accurately describe current illness. - cont bronchodilators, cont steroids, cont supportive care. NC O2 to keep sats 90-92%. (2) COPD exacerbation: Plan: Again no formal dx of COPD but suspect he has such given his long-standing tobacco usage, fingernail clubbing, etc. Cont IV dexamethasone, scheduled bronchodilators, mucinex. Add flutter valve. Add incentive spirometry. NC O2 to keep sats 90-92%, if needed. (3) COVID-19: Plan: Tested + at home just prior to presentation, and is + at [facility]. Given current O2 sats of 89-92% started Remdesivir IV dexamethasone 6mg daily. No pneumonia seen Cont airborne isolation. DVT proph - lovenox BID. (4) Acute confusion: Plan: Acute metabolic encephalopathy 2nd to COVID-19 infection. Supportive care; avoid sedatives. (5) Smokes 1 pack of cigarettes per day: Plan: Tobacco cessation counseling should be provided. In meantime - nicoderm patch 21mg/day. (6) Hypertension: Plan: Continue metoprolol tartrate 25mg BID. Continue daily aspirin. Continue amlodipine 5mg daily. BPs acceptable at this time. (7) Ischemic cardiomyopathy: Plan: Only echo I could find in our EMR is from 2011 - EF 35-40% with wall motion abnormalities c/w ischemic cardiomyopathy. He remains clinically compensated at this time fortunately. Cont metoprolol BID. He typically is not on diuretics at home. (8) Vitamin B12 deficiency: Plan: Continue B12 supplementation (9) Bladder spasms: Plan: Continue oxybutynin (10) Impaired fasting glucose: Plan: a1c 5.8% in July 2021. repeat a1c 6.0 . glucose was elevated on blood work maybe steroid affect change diet to T2DM/heart healthy. (11) Cerebral infarction, unspecified: Plan: 2012 - large L MCA territory stroke. resulting expressive aphasia and mild right-sided weakness since then. cont asa for secondary prevention. cont statin. (12) Carotid artery stenosis: Plan: h/o left-sided ICA stenosis s/p CEA (2011?) (13) DVT prophylaxis: Plan: lovenox 40mg BID higher amount of lovenox due to high-risk for VTE in setting of poor mobility and COVID infection (14) Lori rash of groin: Plan: lori - nystatin cream TID (would consider fluconazole but will defer in setting of Remdesivir usage and potential for liver toxicity) ?superimposed bacterial infection - keflex 500mg TID Plan will need PT, OT Admission and Anticipated Discharge Date Admission Date: December 29, 2021 Subjective this pt can answer short sentences and yes and know, he denies distress Review of Systems Review of Systems: Mild distress and fatigue no headache, no visual changes some unclear and garbly speech no chest pain, pressure or palpitations no shortness of breath, cough or wheezes no abdominal pain, nausea or vomiting, diarrhea or constipation no dysuria, hematuria or frequency no focal joint pain or swelling no back pain, CVA tenderness or radicular pain no bruising, bleeding or rashes no focal signs of weakness or numbness or altered sensation no complaints of anxiety or depression.. Physical Exam Physical Exam: The patient appeared well nourished and normally developed. Vital signs as documented. Head exam is normocephalic atraumatic Neck is without JVD, thyromegaly, or carotid bruits. Lungs are clear to auscultation, no focal loss of breath sounds Cardiac exam, Rhythm is regular.. No murmurs, rubs or gallops. Abdominal exam reveals normal bowel sounds, soft non tender, no masses Extremities are nonedematous and both pedal pulses are present Neurologic exam is alert and oriented, no focal loss of strength or sensation Skin is without bruises or rashes Psychologically is without concerns for anxiety or depression.. Results & Data Results & Data ([facility]) Vital Signs (Past 12 Hours) Vital Signs Temp Pulse Pulse Resp BP Pulse Ox O2 Del Method 12/31/21 06:06 77 12/31/21 04:48 90 Room Air 12/31/21 03:37 97.3 F L 77 18 116/63 88 L Room Air 12/31/21 00:00 81 12/30/21 23:00 97.9 F 85 20 134/74 92 Room Air 12/30/21 20:41 Room Air PG Care Time/CCT Total # of Minutes Spent Total Time Spent with Patient: Total time spent is greater than 50% in coordination of care (as documented) at patient's floor/unit and/or counseling patient: Coding Level of Care Code 26453 Subseq Hosp Care Lvl 2 Diagnoses Acute respiratory failure with hypoxia J96.01 COPD exacerbation J44.1 COVID-19 U07.1 Acute confusion R41.0 Smokes 1 pack of cigarettes per day F17.210 Hypertension I10 Ischemic cardiomyopathy I25.5 Vitamin B12 deficiency E53.8 Bladder spasms N32.89 Impaired fasting glucose R73.01 Cerebral infarction, unspecified I63.9 Carotid artery stenosis I65.29 DVT prophylaxis Z29.9 Lori rash of groin B37.89
[2021-12-31 07:45] LABS: Albumin Globulin Ratio 1.1 (0.9-2); Albumin Level 3.7 gm/dl (3.4-5.0); BUN Creatinine Ratio 29.2 (10-20); Bilirubin,Total 0.5 mg/dl (0.2-1.0); Calcium 8.6 mg/dl (8.5-10.1); Creatinine Clr Calc Pharmacy 76.8 ml/min; Est GFR (African American) 89.3 ml/min; Globulin 3.3 gm/dl (2.5-4.0); Magnesium 2.3 mg/dl (1.7-2.4); Potassium 3.7 mmol/L (3.5-5.1)
[2021-12-31] MEDS: dexAMETHasone 6 MG in SYRINGE 0 ML IV SCH (08:31)
[2021-12-31] MEDS: NYSTATIN CR 15 GM TUBE EXT SCH ×3 (08:31→19:35)
[2021-12-31] MEDS: METOPROLOL TARTRATE 25 MG TAB PO SCH ×2 (08:32→21:11)
[2021-12-31] MEDS: cephALEXin 500 MG CAP PO SCH ×3 (08:32→21:11)
[2021-12-31] MEDS: NICOTINE 21 MG/24 HR TDSY TD SCH (08:33)
[2021-12-31] MEDS: amLODIPine BESYLATE 5 MG TAB PO SCH (08:33)
[2021-12-31] MEDS: CYANOCOBALAMIN (B-12) 2,500 MCG TABLET SL SCH (08:33)
[2021-12-31] MEDS: ZINC SULFATE 220 MG CAPSULE PO SCH (08:33)
[2021-12-31] MEDS: ASPIRIN 81 MG ECTAB PO SCH (08:34)
[2021-12-31] MEDS: ATORVASTATIN 20 MG TAB PO SCH (08:34)
[2021-12-31] MEDS: CHOLECALCIFEROL 5,000 UNITS 125 MCG TAB PO SCH (08:34)
[2021-12-31] MEDS: ENOXAPARIN INJ 40 MG/0.4 ML SYR SQ SCH ×2 (08:35→21:11)
[2021-12-31] MEDS: guaiFENesin 600 MG TABCR PO SCH ×2 (10:36→19:35)
[2021-12-31] MEDS: REMDESIVIR 100 MG in SODIUM CHLORIDE 0.9% 230 ML IV SCH (11:49)
[2022-01-01] MEDS: ALBUTEROL HFA 8 GM INHALER INH SCH ×4 (07:08→19:20)
[2022-01-01] MEDS: amLODIPine BESYLATE 5 MG TAB PO SCH (08:36)
[2022-01-01] MEDS: dexAMETHasone 6 MG in SYRINGE 0 ML IV SCH (08:36)
[2022-01-01] MEDS: ENOXAPARIN INJ 40 MG/0.4 ML SYR SQ SCH ×2 (08:37→21:39)
[2022-01-01 08:38] LABS: Hematocrit (blood only) 37.9 % (40.1-51.0); Hemoglobin 13.1 g/dl (14.0-18.0); Immature Granulocytes # (auto) 0.06 K/uL (0.00-0.02); Immature Granulocytes % (auto) 0.6 %; Lymphocytes # (auto) 0.93 K/uL (1.2-3.4); Lymphocytes % (auto) 9.6 %; Mean Corpuscular Hemoglobin 34.8 pg (25.0-34.0); Mean Corpuscular Hgb Conc 34.6 g/dL (32.0-36.0); Mean Corpuscular Volume 100.8 fL (80.0-100.0); Mean Platelet Volume 10.3 fL (9.4-12.4); Monocytes # (auto) 0.53 K/uL (0.24-0.82); Monocytes % (auto) 5.5 %; Neutrophils # (auto) 8.17 K/uL (1.4-6.5); Neutrophils % (auto) 84.3 %; Platelet Count 222 K/uL (130-400); Red Blood Count 3.76 M/uL (4.63-6.08); White Blood Count 9.69 K/ul (4.8-10.8)
[2022-01-01] MEDS: METOPROLOL TARTRATE 25 MG TAB PO SCH ×2 (08:38→21:39)
[2022-01-01] MEDS: ATORVASTATIN 20 MG TAB PO SCH (08:38)
[2022-01-01] MEDS: guaiFENesin 600 MG TABCR PO SCH ×2 (08:38→21:40)
[2022-01-01] MEDS: CHOLECALCIFEROL 5,000 UNITS 125 MCG TAB PO SCH (08:38)
[2022-01-01] MEDS: CYANOCOBALAMIN (B-12) 2,500 MCG TABLET SL SCH (08:39)
[2022-01-01] MEDS: ZINC SULFATE 220 MG CAPSULE PO SCH (08:39)
[2022-01-01] MEDS: cephALEXin 500 MG CAP PO SCH ×3 (08:39→21:39)
[2022-01-01] MEDS: ASPIRIN 81 MG ECTAB PO SCH (08:40)
[2022-01-01] MEDS: NICOTINE 21 MG/24 HR TDSY TD SCH (08:40)
[2022-01-01] MEDS: NYSTATIN CR 15 GM TUBE EXT SCH ×3 (08:41→21:41)
[2022-01-01 08:56] LABS: Albumin Globulin Ratio 1.2 (0.9-2); Albumin Level 3.4 gm/dl (3.4-5.0); BUN Creatinine Ratio 40.5 (10-20); Bilirubin,Total 0.5 mg/dl (0.2-1.0); Calcium 8.2 mg/dl (8.5-10.1); Creatinine Clr Calc Pharmacy 93.3 ml/min; Est GFR (African American) 101.8 ml/min; Est GFR (Non-African American) 87.8 ml/min; Globulin 2.8 gm/dl (2.5-4.0); Magnesium 2.4 mg/dl (1.7-2.4); Potassium 3.7 mmol/L (3.5-5.1); Total Protein 6.2 gm/dl (6.0-8.3)
[2022-01-01 08:59] LABS: Partial Thromboplastin Ratio 1.4; Partial Thromboplastin Time 38.8 Seconds (21.0-31.0)
[2022-01-01] MEDS: REMDESIVIR 100 MG in SODIUM CHLORIDE 0.9% 230 ML IV SCH (11:50)
--- NOTE | 2022-01-01 20:49 | Hospitalist Progress Note ---
Date of Service January 01, 2022 Assessment & Plan (1) Acute respiratory failure with hypoxia: Plan: 2nd to COVID-19 infection with resulting acute bronchitis. Suspect he has underlying COPD but no formal dx and is not on inhalers at home. thus, COPD exacerbation would more accurately describe current illness. - cont bronchodilators, cont steroids, cont supportive care. NC O2 to keep sats 90-92%. able to wean to room air (2) COPD exacerbation: Plan: Again no formal dx of COPD but suspect he has such given his long-standing tobacco usage, fingernail clubbing, etc. Cont IV dexamethasone, scheduled bronchodilators, mucinex. Add flutter valve. Add incentive spirometry. NC O2 to keep sats 90-92%, if needed. (3) COVID-19: Plan: Tested + at home just prior to presentation, and is + at [facility]. Given current O2 sats of 89-92% started Remdesivir IV dexamethasone 6mg daily. No pneumonia seen Cont airborne isolation. DVT proph - lovenox BID. (4) Acute confusion: Plan: Acute metabolic encephalopathy 2nd to COVID-19 infection. Supportive care; avoid sedatives. (5) Smokes 1 pack of cigarettes per day: Plan: Tobacco cessation counseling should be provided. In meantime - nicoderm patch 21mg/day. (6) Hypertension: Plan: Continue metoprolol tartrate 25mg BID. Continue daily aspirin. Continue amlodipine 5mg daily. BPs acceptable at this time. (7) Ischemic cardiomyopathy: Plan: Only echo I could find in our EMR is from 2011 - EF 35-40% with wall motion abnormalities c/w ischemic cardiomyopathy. He remains clinically compensated at this time fortunately. Cont metoprolol BID. He typically is not on diuretics at home. (8) Vitamin B12 deficiency: Plan: Continue B12 supplementation (9) Bladder spasms: Plan: Continue oxybutynin (10) Impaired fasting glucose: Plan: a1c 5.8% in July 2021. repeat a1c 6.0 . glucose was elevated on blood work maybe steroid affect change diet to T2DM/heart healthy. (11) Cerebral infarction, unspecified: Plan: 2011 - large L MCA territory stroke. resulting expressive aphasia and mild right-sided weakness since then. cont asa for secondary prevention. cont statin. (12) Carotid artery stenosis: Plan: h/o left-sided ICA stenosis s/p CEA (2011?) (13) DVT prophylaxis: Plan: lovenox 40mg BID higher amount of lovenox due to high-risk for VTE in setting of poor mobility and COVID infection (14) Lori rash of groin: Plan: lori - nystatin cream TID (would consider fluconazole but will defer in setting of Remdesivir usage and potential for liver toxicity) ?superimposed bacterial infection - keflex 500mg TID one week treatment LD 01/06/22 Plan will need PT, OT Admission and Anticipated Discharge Date Admission Date: December 29, 2021 Subjective this pt can answer short sentences and yes and know, he denies distress i spoke to and since people at home are sick they will be prepared for him to come home on 01/02 if stable Review of Systems Review of Systems: Mild distress and fatigue no headache, no visual changes some unclear and garbly speech no chest pain, pressure or palpitations no shortness of breath, cough or wheezes no abdominal pain, nausea or vomiting, diarrhea or constipation no dysuria, hematuria or frequency no focal joint pain or swelling no back pain, CVA tenderness or radicular pain no bruising, bleeding or rashes no focal signs of weakness or numbness or altered sensation no complaints of anxiety or depression.. Physical Exam Physical Exam: The patient appeared well nourished and normally developed. Vital signs as documented. Head exam is normocephalic atraumatic Neck is without JVD, thyromegaly, or carotid bruits. Lungs are clear to auscultation, no focal loss of breath sounds Cardiac exam, Rhythm is regular.. No murmurs, rubs or gallops. Abdominal exam reveals normal bowel sounds, soft non tender, no masses Extremities are nonedematous and both pedal pulses are present Neurologic exam is alert and oriented, no focal loss of strength or sensation Skin is without bruises or rashes Psychologically is without concerns for anxiety or depression.. Results & Data Results & Data ([facility]) Vital Signs (Past 12 Hours) Vital Signs Temp Pulse Pulse Pulse Pulse Pulse Resp 01/01/22 19:23 80 01/01/22 18:29 97.9 F 92 H 19 01/01/22 17:19 98.1 F 91 H 18 01/01/22 16:06 84 74 67 01/01/22 16:01 70 14 01/01/22 14:27 64 09/21/22 15:34 97.7 F 91 H 18 01/01/22 11:51 97.7 F 83 20 01/01/22 10:15 77 14 Resp Resp Resp BP Pulse Ox Pulse Ox Pulse Ox 01/01/22 19:23 92 01/01/22 18:29 149/78 H 91 01/01/22 17:19 123/74 88 L 01/01/22 16:06 19 15 16 89 L 90 01/01/22 16:01 88 L 01/01/22 14:27 01/01/22 15:34 150/77 H 92 01/01/22 11:51 157/85 H 91 01/01/22 10:15 90 Pulse Ox O2 Del Method FiO2 01/01/22 19:23 Room Air 01/01/22 18:29 Room Air 01/01/22 17:19 Room Air 01/01/22 16:06 92 01/01/22 16:01 Room Air 21 01/01/22 14:27 01/01/22 15:34 Room Air 01/01/22 11:51 Room Air 01/01/22 10:15 Room Air 21 PG Care Time/CCT Total # of Minutes Spent Total Time Spent with Patient: Total time spent is greater than 50% in coordination of care (as documented) at patient's floor/unit and/or counseling patient: Coding Level of Care Code 27122 Subseq Hosp Care Lvl 2 Diagnoses Acute respiratory failure with hypoxia J96.01 COPD exacerbation J44.1 COVID-19 U07.1 Acute confusion R41.0 Smokes 1 pack of cigarettes per day F17.210 Hypertension I10 Ischemic cardiomyopathy I25.5 Vitamin B12 deficiency E53.8 Bladder spasms N32.89 Impaired fasting glucose R73.01 Cerebral infarction, unspecified I63.9 Carotid artery stenosis I65.29 DVT prophylaxis Z29.9 Lori rash of groin B37.89
[2022-01-02] MEDS: ALBUTEROL HFA 8 GM INHALER INH SCH ×2 (07:08→10:20)
[2022-01-02] MEDS: ENOXAPARIN INJ 40 MG/0.4 ML SYR SQ SCH (08:35)
[2022-01-02] MEDS: NICOTINE 21 MG/24 HR TDSY TD SCH (08:36)
[2022-01-02] MEDS: CHOLECALCIFEROL 5,000 UNITS 125 MCG TAB PO SCH (08:36)
[2022-01-02] MEDS: ASPIRIN 81 MG ECTAB PO SCH (08:37)
[2022-01-02] MEDS: guaiFENesin 600 MG TABCR PO SCH (08:37)
[2022-01-02] MEDS: amLODIPine BESYLATE 5 MG TAB PO SCH (08:37)
[2022-01-02] MEDS: ATORVASTATIN 20 MG TAB PO SCH (08:38)
[2022-01-02] MEDS: cephALEXin 500 MG CAP PO SCH (08:39)
[2022-01-02] MEDS: ZINC SULFATE 220 MG CAPSULE PO SCH (08:39)
[2022-01-02] MEDS: CYANOCOBALAMIN (B-12) 2,500 MCG TABLET SL SCH (08:39)
[2022-01-02] MEDS: METOPROLOL TARTRATE 25 MG TAB PO SCH (08:39)
[2022-01-02] MEDS: NYSTATIN CR 15 GM TUBE EXT SCH (08:40)
[2022-01-02] MEDS: dexAMETHasone 6 MG in SYRINGE 0 ML IV SCH (08:45)
[2022-01-02 09:42] LABS: Alanine Aminotransferase 21 U/L (7-52); Aspartate Aminotransferase 24 U/L (13-39)
--- NOTE | 2022-01-02 19:43 | Discharge Summary ---
Date of Service January 02, 2022 Admission HPI Per Admitting Provider The patient is a 76-year-old male with a past medical history including right bundle branch block, peripheral neuropathy, morbid obesity, ischemic cardiomyopathy, impaired fasting glucose, hypertension, CAD, cerebral infarction 08/2011, carotid artery stenosis, anxiety, and vit B12 deficiency. Suspect patient has some underlying dementia as well, as suggested by memory and recall with practitioner and family while in the ED. While in the ED, the patient did receive a nebulizer treatment and was given Solu-Medrol 125 mg IV. Patient continues to smoke on a daily basis, but has not been diagnosed with emphysema in the past. He does report a intermittently productive cough over the past week. The patient's preference was to go home this evening, but his and I were able to convince him to please stay in the hospital for 36 hours to get treatment. Principal Diagnosis hypoxic respiratory failure covid infection Discharge Exam The patient appeared stable Vital signs as documented. He is aphasic and most significant distress is on have labored respirations Discharge Data Allergies Allergy/AdvReac Type Severity Reaction Status Date / Time No Known Allergies Allergy Verified 12/05/21 11:32 Consultations 12/29/21 22:26 ED Decision to Admit Stat Ordered Studies 12/29/21 19:53 CT head/brain wo con Urgent Hospital Course (1) Acute respiratory failure with hypoxia: 2nd to COVID-19 infection with resulting acute bronchitis. In the ER it is document he is at increased respiratory effort Suspect he has underlying COPD but no formal dx and is not on inhalers at home. thus, COPD exacerbation would more accurately describe current illness. - (2) COPD exacerbation: Again no formal dx of COPD but suspect he has such given his long-standing tobacco usage, fingernail clubbing, etc. Cont IV dexamethasone, scheduled bronchodilators, mucinex. NuStep confirms no need for home oxygen (3) COVID-19: Tested + at home just prior to presentation, and is + at [facility]. Given current O2 sats of 89-92% started Remdesivir IV dexamethasone 6mg daily. Convert to p.o. at discharge No pneumonia seen Cont airborne isolation at home is appropriate. DVT proph - lovenox BID. (4) Acute confusion: Acute metabolic encephalopathy 2nd to COVID-19 infection. Resolved (5) Smokes 1 pack of cigarettes per day: Tobacco cessation counseling should be provided. In meantime - nicoderm patch 21mg/day. (6) Hypertension: Continue metoprolol tartrate 25mg BID. Continue daily aspirin. Continue amlodipine 5mg daily. . (7) Ischemic cardiomyopathy: Only echo I could find in our EMR is from 2011 - EF 35-40% with wall motion abnormalities c/w ischemic cardiomyopathy. He remains clinically compensated at this time fortunately. Cont metoprolol BID. He typically is not on diuretics at home. (8) Vitamin B12 deficiency: Continue B12 supplementation (9) Bladder spasms: Continue oxybutynin (10) Impaired fasting glucose: a1c 5.8% in July 2021. repeat a1c 6.0 . glucose was elevated on blood work maybe steroid affect change diet to T2DM/heart healthy. (11) Cerebral infarction, unspecified: 2011 - large L MCA territory stroke. resulting expressive aphasia and mild right-sided weakness since then. cont asa for secondary prevention. cont statin. (12) Carotid artery stenosis: h/o left-sided ICA stenosis s/p CEA (2011?) (13) Jossy rash of groin: jossy - nystatin cream TID (would consider fluconazole but will defer in setting of Remdesivir usage and potential for liver toxicity) ?superimposed bacterial infection - keflex 500mg TID one week treatment LD 01/06/22 Plan will need PT, OT Total Time Total Time Spent Total Time Spent (In Minutes): It required than 30 minutes to prepare this patient for discharge Discharge Plan Discharge Items Patient Disposition: Home - Self-Care Reason For Visit: ACUTE RESP FAILURE W/ HYPOXIA, COVID-19, BRONCHITI Discharge Diagnosis: hypoxic respiratory failure covid infection Activity: Resume your previous activity Non-emergency contact: Primary Care Provider Call non-emergency contact if: your symptoms worsen Follow-up/Referrals: Chadwick Pinzon III, MD [Primary Care Provider] - Diet: Regular Addtl Attending Provider Instructions: You have been diagnosed with covid infection, it would be recommended that you quarantine yourself for 10 days from your first test or first symptoms, and if at the 10th day you have no symptoms the you can come off quarantine but use common sense precautions. Quarantine means attempting to stay away from people who have not had an active covid infection in the past, and if you have to be around others to wear a mask even if you are indoors, do not share a room to sleep in with others until you are out of quarantine. If you still have symptoms at the 10th day, continue to quarantine until you are symptom free for 48 hours For your mild skin infection complete antibiotics to be prescribed. It would be recommended you follow-up with a primary care doctor in 1 week Pending Studies at Discharge: No Stand-Alone Forms: [facility], Smoking Cessation Medications and DC Order Prescriptions: New cephalexin 500 mg Capsule 500 mg PO TID Qty: 10 0RF dexamethasone [Decadron] 6 mg tablet 6 mg PO DAILY Qty: 4 0RF Continued metoprolol tartrate 25 mg tablet 25 mg PO BID Qty: 180 3RF atorvastatin 20 mg tablet 20 mg PO DAILY Qty: 90 3RF oxybutynin chloride 5 mg tablet 5 mg PO BID Qty: 180 3RF amlodipine 5 mg tablet 5 mg PO DAILY Qty: 90 3RF aspirin 81 mg tablet,delayed release (DR/EC) 81 mg PO DAILY Qty: 30 2RF mecobalamin (vitamin B12) 1,000 mcg tablet,chewable 2,500 mcg PO DAILY Discharge Orders: Discharge Order (Routine); Ordered 01/02/22 Ordered By: Neftaly Wynn/Other Patient Handouts: Prediabetes, 5 Steps for Eating Healthier Admission Data Admit Date/Time: 12/29/21 23:01 Attending Provider: Neftaly Lange Admit Provider: Forrest Mendez Primary Care Provider: Chadwick Pinzon III Other Providers: Forrest Mendez ; [facility],Home [facility] ; [place] ; [facility] Other Interventions: Discharge Summary Assessment (RN) Last Done: 01/02/22 10:00 Coding Level of Care Code D/C DAY MANAGEMENT <30 MINS Diagnoses Acute respiratory failure with hypoxia J96.01 COPD exacerbation J44.1 COVID-19 U07.1 Acute confusion R41.0 Smokes 1 pack of cigarettes per day F17.210 Hypertension I10 Ischemic cardiomyopathy I25.5 Vitamin B12 deficiency E53.8 Bladder spasms N32.89 Impaired fasting glucose R73.01 Cerebral infarction, unspecified I63.9 Carotid artery stenosis I65.29 Jossy rash of groin B37.89
== END 2022-01-02 12:22 | disposition home health service (06) | DRG 177 ==
LOC: ED 14:11 → SUATTDRO 23:01 → 2N 23:01
DX: N32.89 Other specified disorders of bladder; I25.10 Atherosclerotic heart disease of native coronary artery without angina pectoris; I69.320 Aphasia following cerebral infarction; I25.5 Ischemic cardiomyopathy; E53.8 Deficiency of other specified B group vitamins; U07.1 COVID-19; J44.1 Chronic obstructive pulmonary disease with (acute) exacerbation; I10 Essential (primary) hypertension; J96.01 Acute respiratory failure with hypoxia; G93.41 Metabolic encephalopathy; I69.351 Hemiplegia and hemiparesis following cerebral infarction affecting right dominant side; F17.210 Nicotine dependence, cigarettes, uncomplicated; R73.01 Impaired fasting glucose; B37.2 Candidiasis of skin and nail; Z83.3 Family history of diabetes mellitus